=== PATIENT | male | born 1935 | race Caucasian/White ===

== ENCOUNTER 2018-08-01 12:24 | Emergency (ER) | payer MEDICARE ==
[2018-08-01] MEDS ORDERED: Albuterol/Ipratropium 3.0-0.5 MG/3 ML Neb Soln NEB ONE (13:23)
--- NOTE | 2018-08-01 13:35 | EDM.PDOC ---
ED HPI GENERAL MEDICAL PROBLEM - General Chief Complaint: Respiratory Problem Stated Complaint: SOB Time Seen by Provider: 08/01/18 12:36 Source of Information: Reports: Patient, Family (SOB), RN Notes Reviewed History Limitations: Reports: No Limitations - History of Present Illness INITIAL COMMENTS - FREE TEXT/NARRATIVE: The patient states that he chronically has dyspnea on exertion, but that he developed shortness of breath even at rest about 2 days ago - the patient's states that it has been for 5 or 6 days. The patient reports occasional wheezing , and a cough occasionally productive of creamy sputum. No recent fever. No recent chest pain or palpitations. The patient states that he has had similar symptoms in the past, but he is unable to elaborate. [facility] - Related Data Allergies Allergy/AdvReac Type Severity Reaction Status Date / Time lisinopril Allergy Cannot Verified 08/01/18 12:39 Remember Home Meds: Home Meds Aspirin [Ecotrin] 81 mg PO DAILY 08/01/18 [History] Calcium Carbonate/Vitamin D3 [Calcium 500 + Vit D 400] 1 tab PO DAILY 08/01/18 [ History] Cholecalciferol (Vitamin D3) [Vitamin D3] 2,000 unit PO DAILY 08/01/18 [History] Finasteride 5 mg PO DAILY 08/01/18 [History] Fluticasone Propionate [Flonase] 1 spray INH DAILY 08/01/18 [History] Formoterol Fumarate [Perforomist] 1 inhalation INH BID 08/01/18 [History] Ipratropium [Atrovent] 1 inh INH QID 08/01/18 [History] Losartan [Cozaar] 25 mg PO DAILY 08/01/18 [History] Multivitamin [Multivitamins] 1 tab PO DAILY 08/01/18 [History] Nortriptyline 25 mg PO QPM 08/01/18 [History] Tamsulosin [Flomax] 0.8 mg PO DAILY 08/01/18 [History] atorvaSTATin [Lipitor] 20 mg PO QPM 08/01/18 [History] glipiZIDE [Glucotrol] 1.25 mg PO DAILY 08/01/18 [History] Past Medical History HEENT History: Reports: Impaired Vision Cardiovascular History: Reports: High Cholesterol, Hypertension Respiratory History: Reports: COPD (home O3 5L during the day, 3L at night) Genitourinary History: Reports: BPH, Retention, Urinary (self-catheterizes) Endocrine/Metabolic History: Reports: Diabetes, Type II - Past Surgical History GI Surgical History: Reports: Appendectomy Musculoskeletal Surgical History: Reports: ORIF (right clavicle) Social & Family History - Tobacco Use Smoking Status *Q: Former Smoker Years of Tobacco use: 52 Packs/Tins Daily: 1 Month/Year Tobacco Last Used: Quit 2001 - Caffeine Use Caffeine Use: Reports: Coffee, Tea - Alcohol Use Alcohol Use History: Yes Date/Time of Last Drink Comment: None since 2001 - Recreational Drug Use Recreational Drug Use: No - Living Situation & Occupation Living situation: Reports: , with Family (Son) Occupation: Retired ED ROS GENERAL - Review of Systems Review Of Systems: ROS reveals no pertinent complaints other than HPI. ED EXAM, GENERAL - Physical Exam Exam: See Below Exam Limited By: No Limitations General Appearance: Alert, WD/WN, No Apparent Distress Eye Exam: Bilateral Eye: EOMI, Normal Inspection Ears: Normal External Exam, Hearing Loss Nose: Normal Inspection Throat/Mouth: Normal Inspection, Normal Lips, Normal Voice, No Airway Compromise Head: Atraumatic, Normocephalic Neck: Normal Inspection Respiratory/Chest: No Respiratory Distress, No Accessory Muscle Use, Decreased Breath Sounds, Wheezing (expiratory), Prolonged Expiration. No: Crackles, Rhonchi, Stridor Cardiovascular: Normal Peripheral Pulses, No Edema, No Gallop, No JVD, No Murmur , No Rub, Tachycardia (irregularly irregular) Peripheral Pulses: 4+: Radial (L), Radial (R) GI/Abdominal: Normal Bowel Sounds, Soft, Non-Tender, No Organomegaly, No Distention, No Abnormal Bruit, No Mass, Hernia (large ventral) (Male) Exam: Deferred Rectal (Males) Exam: Deferred Back Exam: Normal Inspection, Full Range of Motion, NT Extremities: Normal Inspection, Normal Range of Motion, No Pedal Edema, Normal Capillary Refill Neurological: Alert, Oriented, Normal Cognition, No Motor/Sensory Deficits Psychiatric: Normal Affect Skin Exam: Warm, Dry, Intact, Normal Color, No Rash EKG INTERPRETATION EKG Date: 08/01/18 Time: 13:35 Rhythm: A-Flutter (variable conduction) Rate (Beats/Min): 113 [place]: 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) P-Wave: Absent QRS: RBBB (Late transition) ST-T: Normal QT: Prolonged (QTc 497 ms) Comparison: NA - No Prior EKG Course - Vital Signs Last Recorded V/S: Last Vital Signs Temp 36.9 C 08/01/18 12:34 Pulse 101 H 08/01/18 12:34 Resp 22 H 08/01/18 12:34 BP 149/100 H 08/01/18 12:34 Pulse Ox 96 08/01/18 16:41 - Orders/Labs/Meds Orders: Active Orders 24 hr Category Date Time Status EKG Documentation Completion [RC] STAT Care 08/01/18 13:21 Active RT Aerosol Therapy [RC] ASDIRECTED Care 08/01/18 13:23 Active RT Aerosol Therapy [RC] ASDIRECTED Care 08/01/18 15:23 Active CULTURE BLOOD [BC] Stat Lab 08/01/18 13:45 Received CULTURE BLOOD [BC] Stat Lab 08/01/18 13:53 Received Blood Culture x2 Reflex Set [OM.PC] Stat Oth 08/01/18 13:21 Ordered Labs: Laboratory Tests 08/01/18 08/01/18 08/01/18 Range/Units 13:45 13:45 13:45 WBC 7.47 (4.23-9.07) K/mm3 RBC 3.57 L (4.63-6.08) M/mm3 Hgb 11.0 L (13.7-17.5) gm/L Hct 35.9 L (40.1-51.0) % MCV 100.6 H (79.0-92.2) fl MCH 30.8 (25.7-32.2) pg MCHC 30.6 L (32.2-35.5) g/dl RDW Std Deviation 49.0 H (35.1-43.9) fL Plt Count 171 (163-337) K/mm3 MPV 9.3 L (9.4-12.3) fl Neutrophils % (Manual) 86 H (40-60) % Band Neutrophils % 0 (0-10) % Lymphocytes % (Manual) 9 L (20-40) % Atypical Lymphs % 0 % Monocytes % (Manual) 4 (2-10) % Eosinophils % (Manual) 1 (0.8-7.0) % Basophils % (Manual) 0 L (0.2-1.2) Platelet Estimate Adequate Plt Morphology Comment Normal RBC Morph Comment Normal D-Dimer, Quantitative 0.29 (0.19-0.50) mg/L Puncture Site ABG pH (7.35-7.45) ABG pCO2 (35.0-45.0) mmHg ABG pO2 (80.0-100.0) mmHg ABG HCO3 (22.0-26.0) meq/L ABG O2 Saturation (96.0-97.0) % ABG Base Excess (-2-2.0) A-a Gradient mmHg O2 Delivery Device Oxygen Flow Rate FiO2 (21.00-100.00) % Sodium 137 (136-145) mEq/L Potassium 4.7 (3.5-5.1) mEq/L Chloride 96 L (98-107) mEq/L Carbon Dioxide 40 H (21-32) mEq/L Anion Gap 5.7 (5-15) BUN 23 H (7-18) mg/dL Creatinine 1.2 (0.7-1.3) mg/dL Est Cr Clr Drug Dosing 49.85 mL/min Estimated GFR (MDRD) 58 (>60) mL/min BUN/Creatinine Ratio 19.2 H (14-18) Glucose 189 H (83-115) mg/dL Lactic Acid (0.4-2.0) mmol/L Calcium 9.1 (8.5-10.1) mg/dL Total Bilirubin 0.3 (0.2-1.0) mg/dL AST 20 (15-37) U/L ALT 27 (16-63) U/L Alkaline Phosphatase 69 (46-116) U/L Troponin I 0.022 (0.00-0.056) ng/mL Total Protein 7.4 (6.4-8.2) g/dl Albumin 3.5 (3.4-5.0) g/dl Globulin 3.9 gm/dL Albumin/Globulin Ratio 0.9 L (1-2) TSH 3rd Generation (0.358-3.74) uIU/mL 08/01/18 08/01/18 08/01/18 Range/Units 13:45 13:45 14:35 WBC (4.23-9.07) K/mm3 RBC (4.63-6.08) M/mm3 Hgb (13.7-17.5) gm/L Hct (40.1-51.0) % MCV (79.0-92.2) fl MCH (25.7-32.2) pg MCHC (32.2-35.5) g/dl RDW Std Deviation (35.1-43.9) fL Plt Count (163-337) K/mm3 MPV (9.4-12.3) fl Neutrophils % (Manual) (40-60) % Band Neutrophils % (0-10) % Lymphocytes % (Manual) (20-40) % Atypical Lymphs % % Monocytes % (Manual) (2-10) % Eosinophils % (Manual) (0.8-7.0) % Basophils % (Manual) (0.2-1.2) Platelet Estimate Plt Morphology Comment RBC Morph Comment D-Dimer, Quantitative (0.19-0.50) mg/L Puncture Site Rt radial ABG pH 7.36 (7.35-7.45) ABG pCO2 77.1 H* (35.0-45.0) mmHg ABG pO2 64.0 L (80.0-100.0) mmHg ABG HCO3 41.9 H (22.0-26.0) meq/L ABG O2 Saturation 93.6 L (96.0-97.0) % ABG Base Excess 13.7 H (-2-2.0) A-a Gradient 18 mmHg O2 Delivery Device Nasal cannula Oxygen Flow Rate 2.0 FiO2 28.00 (21.00-100.00) % Sodium (136-145) mEq/L Potassium (3.5-5.1) mEq/L Chloride (98-107) mEq/L Carbon Dioxide (21-32) mEq/L Anion Gap (5-15) BUN (7-18) mg/dL Creatinine (0.7-1.3) mg/dL Est Cr Clr Drug Dosing mL/min Estimated GFR (MDRD) (>60) mL/min BUN/Creatinine Ratio (14-18) Glucose (83-115) mg/dL Lactic Acid 1.0 (0.4-2.0) mmol/L Calcium (8.5-10.1) mg/dL Total Bilirubin (0.2-1.0) mg/dL AST (15-37) U/L ALT (16-63) U/L Alkaline Phosphatase (46-116) U/L Troponin I (0.00-0.056) ng/mL Total Protein (6.4-8.2) g/dl Albumin (3.4-5.0) g/dl Globulin gm/dL Albumin/Globulin Ratio (1-2) TSH 3rd Generation 0.490 (0.358-3.74) uIU/mL Meds: Medications Discontinued Medications Generic Name Dose Route Start Last Admin Trade Name Freq PRN Reason Stop Dose Admin Albuterol 2.5 mg 08/01/18 15:23 08/01/18 16:41 Proventil Neb Soln NEB 08/01/18 15:24 2.5 mg ONETIME ONE Administration Albuterol/Ipratropium 3 ml 08/01/18 13:23 08/01/18 13:43 Duoneb 3.0-0.5 Mg/3 Ml NEB 08/01/18 13:24 3 ml ONETIME ONE Administration Diltiazem HCl 5 mg 08/01/18 13:49 08/01/18 14:06 Cardizem IVPUSH 08/01/18 13:50 5 mg ONETIME STA Administration Diltiazem HCl 125 mg/ Sodium 125 mls @ 10 mls/hr 08/01/18 14:00 08/01/18 14: 29 Chloride IV 10 mg/hr TITRATE EDDIE 10 mls/hr Administration Protocol 10 MG/HR Prednisone 60 mg 08/01/18 15:22 08/01/18 16:18 Prednisone PO 08/01/18 15:23 60 mg ONETIME STA Administration Rivaroxaban 20 mg 08/01/18 16:38 08/01/18 17:18 Xarelto PO 08/01/18 16:39 20 mg ONETIME STA Administration - Re-Assessments/Exams Free Text/Narrative Re-Assessment/Exam: 08/01/18 13:24 The patient is likely suffering from a COPD exacerbation, as he has significant diminished breath sounds and expiratory wheezing. I have ordered a DuoNeb and a workup, however, before I start the patient on steroids, I would like to see the result of his ABG. 08/01/18 13:50 The patient's ECG demonstrates atrial flutter with variable conduction, at 113 bpm. I have ordered Cardizem push and drip. 08/01/18 14:45 2-view chest radiograph reviewed. There is mild cardiomegaly, but no pulmonary vascular congestion or pleural effusions to suggest decompensated CHF. No focal infiltrate. No pneumothorax. There is hyperinflation and bilateral diaphragmatic flattening, consistent with COPD. A right clavicle wire, consistent with prior clavicle fracture fixation, is incidentally noted. Arthritic changes noted to both shoulders. Formal read per the Radiologist pending. 08/01/18 14:59 The patient's CBC is relatively unremarkable, without an elevated WBC count. The patient CMP is remarkable for a bicarbonate of 40, and a BUN of 25, with a normal creatinine. His blood glucose is elevated at 189. The remainder of his CMP is normal. The patient's troponin is undetectable. The patient's lactic acid level is normal. The patient's D-dimer is low. The patient's ABG represents a chronic/fully compensated respiratory acidosis. Test results discussed with patient and his son. The patient's lungs do not sound any better than when I listen to him earlier. Strict be speaking, I don't know that he is suffering a COPD exacerbation - his lungs may only sound this way, and his dyspnea on exertion is most likely due to the A-flutter. Nevertheless, I will treat the patient with oral prednisone and continued albuterol nebs. I do not see an indication for antibiotics. Because of his Cardizem drip, the patient will need to be admitted to the hospital, however, we do not have any ICU beds available here, therefore he will require transfer to [place]. Patient prefers [facility]. 08/01/18 15:20 Both [facility] and [facility] have been contacted. [facility] is on diversion, and [facility] has only pediatric and OB beds available. The patient will therefore need to stay here in the ED until such time as a bed becomes available. 08/01/18 16:39 The patient will be started on Xarelto 20 mg with his evening meal. 08/01/18 17:57 Case again discussed with Carito at [facility], at 17:47. She will have the Hospitalist Dr. Preston call me back when he is available. 08/01/18 18:23 Called back by the Hospitalist Dr. Larson and the [facility] [place] Dr. Cardona at 18: 14. Dr. Cardona feels that the patient's atrial flutter is likely very to his advanced COPD, and that the patient may wind up remaining in atrial flutter. He recommended conversion to oral Cardizem after a couple of days and keep him on the Xarelto, however, he did not initially realized that this is the ED, and that we do not have bed availability at this facility. Based on that, he agreed to the patient being transferred. The patient will be transported by ground ambulance. Departure - Departure Time of Disposition: 18:27 Disposition: DC/Tfer to [facility] 02 Condition: Fair Clinical Impression: COPD (chronic obstructive pulmonary disease), Atrial flutter with rapid ventricular response, Hyperglycemia due to type 2 diabetes mellitus - Discharge Information *PRESCRIPTION DRUG MONITORING PROGRAM REVIEWED*: Not Applicable *COPY OF PRESCRIPTION DRUG MONITORING REPORT IN PATIENT BOZENA: Not Applicable Referrals: Lou Jc MD [Primary Care Provider] - - My Orders Last 24 Hours: My Active Orders 08/01/18 13:21 EKG Documentation Completion [RC] STAT Blood Culture x2 Reflex Set [OM.PC] Stat 08/01/18 13:23 RT Aerosol Therapy [RC] ASDIRECTED 08/01/18 13:45 CULTURE BLOOD [BC] Stat 08/01/18 13:53 CULTURE BLOOD [BC] Stat 08/01/18 15:23 RT Aerosol Therapy [RC] ASDIRECTED - Assessment/Plan Last 24 Hours: My Active Orders 08/01/18 13:21 EKG Documentation Completion [RC] STAT Blood Culture x2 Reflex Set [OM.PC] Stat 08/01/18 13:23 RT Aerosol Therapy [RC] ASDIRECTED 08/01/18 13:45 CULTURE BLOOD [BC] Stat 08/01/18 13:53 CULTURE BLOOD [BC] Stat 08/01/18 15:23 RT Aerosol Therapy [RC] ASDIRECTED
[2018-08-01] MEDS ORDERED: Diltiazem 50 MG/10 ML SDV IVPUSH STA (13:49)
[2018-08-01] MEDS ORDERED: Diltiazem 125 MG in Sodium Chloride 0.9% 100 ML IV SCH (14:00)
--- NOTE | 2018-08-01 14:54 | CR ---
Chest: Two views of the chest were obtained. Comparison: Previous chest x-ray of 07/21/17. Slight scarring is noted within the lateral costophrenic angle. Lungs otherwise are clear but slightly hyperinflated. Scattered disc space narrowing and mild endplate osteophyte are seen within the spine. Heart size and mediastinum are normal. Previous surgery noted within the right clavicle. Impression: 1. Emphysematous change. Other incidental findings. Nothing acute is appreciated. Diagnostic code #2
[2018-08-01] MEDS ORDERED: predniSONE 20 MG Tab PO STA (15:22)
[2018-08-01] MEDS ORDERED: Albuterol 0.083% 2.5 MG/3 ML Neb Soln NEB ONE (15:23)
[2018-08-01] MEDS ORDERED: Rivaroxaban 10 MG Tab PO STA (16:38)
== END 2018-08-01 22:00 ==
LOC: JD.ED 12:24
DX: I48.92 Unspecified atrial flutter (principal); J44.9 Chronic obstructive pulmonary disease, unspecified; E11.65 Type 2 diabetes mellitus with hyperglycemia; I10 Essential (primary) hypertension; Z79.899 Other long term (current) drug therapy; Z90.49 Acquired absence of other specified parts of digestive tract; Z79.82 Long term (current) use of aspirin; Z88.8 Allergy status to other drugs, medicaments and biological substances; Z87.891 Personal history of nicotine dependence
CPT/HCPCS: 36415; 36600; 71046; 80053; 82803; 83605; 84443; 84484; 85007; 85027; 85379; 87040; 93005; 94640; 96365; 96366; 96376; 99285; A9270; J3490; J7030; 93010; 99283; J7620-GY